=== PATIENT | male | born 1945 | race American Indian/Alaskan Native ===

== ENCOUNTER 2021-12-17 02:33 | Emergency (ER) | payer MEDICARE ==
--- NOTE | 2021-12-17 03:37 | XRay Report ---
CHEST 2 VIEWS INDICATION / CLINICAL INFORMATION: SOB. COMPARISON: None available. FINDINGS: SUPPORT DEVICES: A left vagus nerve stimulator is present. HEART / MEDIASTINUM: No significant abnormality. LUNGS / PLEURA: No significant pulmonary abnormality. No significant pleural effusion. No pneumothora x. ADDITIONAL FINDINGS: No significant additional findings. IMPRESSION: 1. No acute abnormality of the chest. Signer Name: Ranjith Diane MD Signed: 12/17/2021 3:33 AM Workstation Name: [id number]
[2021-12-17] MEDS ORDERED: ALBUTEROL 2.5 MG/3 ML NEBU IH ONE (06:44)
[2021-12-17] MEDS ORDERED: IPRATROPIUM 0.02% NEBU 2.5 ML IH ONE (06:44)
[2021-12-17] MEDS ORDERED: dexAMETHasone 4 MG/ML VIAL IM ONE (06:44)
--- NOTE | 2021-12-17 07:47 | Emergency Department Report ---
ED Asthma HPI - General Chief Complaint: Adult Asthma Stated Complaint: SOB PUI?: No Time Seen by Provider: 12/17/21 06:31 Source: patient, family Mode of arrival: Ambulatory Limitations: No Limitations - History of Present Illness Initial Comments: WAKING UP GASPING FOR AIR, STATES THAT HE IS SUPPOSED TO BE USING HIS C PAP AT H OME BUT IT HAS A LEAK. PT C/O SOB X 2 HRS [employer]. PT C/A/O, RESP UNLAB, SHALLOW, 97% RA, SKIN EXPECTED COLOR WDI, PT AMB INTO TRIAGE MD Complaint: "asthma attack" -: days(s) Asthma History: history of frequent attac Associated Symptoms: dry cough Treatments Prior to Arrival: inhaled bronchodilator - Related Data Current Asthma Therapy: none Allergies Allergy/AdvReac Type Severity Reaction Status Date / Time avobenzone [From [facility]] Allergy Unknown Verified 12/17/21 02:53 hydroquinone [From [facility]] Allergy Unknown Verified 12/17/21 02:53 octinoxate [From [facility]] Allergy Unknown Verified 12/17/21 02:53 octocrylene [From [facility]] Allergy Unknown Verified 12/17/21 02:53 ED Review of Systems ROS: Stated complaint: SOB Other details as noted in HPI Constitutional: denies: chills, fever Eyes: denies: eye pain, eye discharge, vision change ENT: denies: ear pain, throat pain Respiratory: denies: cough, shortness of breath, wheezing Cardiovascular: denies: chest pain, palpitations Endocrine: no symptoms reported Gastrointestinal: denies: abdominal pain, nausea, diarrhea Genitourinary: denies: urgency, dysuria Musculoskeletal: denies: back pain, joint swelling, arthralgia Skin: denies: rash, lesions Neurological: denies: headache, weakness, paresthesias Psychiatric: denies: anxiety, depression Hematological/Lymphatic: denies: easy bleeding, easy bruising ED Past Medical Hx - Past Medical History Previous Medical History?: Yes Hx Hypertension: Yes Hx CVA: No Hx Heart Attack/AMI: No Hx Psychiatric Treatment: Yes (DEPRESSION) Hx Asthma: Yes Hx COPD: Yes - Surgical History Past Surgical History?: No - Social History Smoking Status: Never Smoker ED Physical Exam - General Limitations: No Limitations General appearance: alert, in no apparent distress - Head Head exam: Present: atraumatic, normocephalic - Eye Eye exam: Present: normal appearance - ENT ENT exam: Present: mucous membranes moist - Neck Neck exam: Present: normal inspection - Respiratory Respiratory exam: Present: normal lung sounds bilaterally, wheezes. Absent: respiratory distress - Cardiovascular Cardiovascular Exam: Present: regular rate, normal rhythm. Absent: systolic murmur, diastolic murmur, rubs, gallop - GI/Abdominal GI/Abdominal exam: Present: soft, normal bowel sounds - Rectal Rectal exam: Present: deferred - Extremities Exam Extremities exam: Present: normal inspection - Back Exam Back exam: Present: normal inspection - Neurological Exam Neurological exam: Present: alert, oriented X3 - Psychiatric Psychiatric exam: Present: normal affect, normal mood - Skin Skin exam: Present: warm, dry, intact, normal color. Absent: rash ED Course Vital Signs 12/17/21 02:39 Temperature 98.5 F Pulse Rate 66 Respiratory 18 Rate Blood Pressure 174/99 O2 Sat by Pulse 99 Oximetry Critical care attestation.: If time is entered above; I have spent that time in minutes in the direct care of this critically ill patient, excluding procedure time. ED Disposition Clinical Impression: Asthma exacerbation Disposition: 01 HOME / SELF CARE / HOMELESS Is pt being admited?: No Does the pt Need Aspirin: No Condition: Stable Instructions: Asthma, Adult Referrals: PRIMARY CARE, [Primary Care Provider] - 3-5 Days
[2021-12-17 08:19] VITALS: BP 150/77
== END 2021-12-17 08:18 | disposition home or self-care (01) ==
LOC: EDBD 02:33 → ED 02:33
DX: J45.901 Unspecified asthma with (acute) exacerbation (principal); I10 Essential (primary) hypertension; F32.A Depression, unspecified; Z91.09 Other allergy status, other than to drugs and biological substances
CPT/HCPCS: 71046; 94640; 96372; 99283; J1100